=== PATIENT | female | born 1995 | race African-American/Black ===

== ENCOUNTER 2016-08-09 20:40 | Emergency (ER) | payer OTHER, SELFPAY ==
[2016-08-09] MEDS ORDERED: Dexamethasone 4 mg/ml Vial ONE (21:07)
== END 2016-08-09 21:32 | disposition home or self-care (01) ==
LOC: NAV ERS 20:40
DX: L23.9 Allergic contact dermatitis, unspecified cause (principal)
CPT/HCPCS: 96372; J1100

== ENCOUNTER 2016-08-25 21:26 | Emergency (ER) | payer SELFPAY ==
[2016-08-25] MEDS ORDERED: Meclizine HCl 25 MG TAB ONE (21:59)
== END 2016-08-25 22:05 | disposition home or self-care (01) ==
LOC: NAV ERS 21:26
DX: H81.13 Benign paroxysmal vertigo, bilateral (principal); Z87.442 Personal history of urinary calculi
CPT/HCPCS: 99283

== ENCOUNTER 2016-09-16 10:45 | Emergency (ER) | payer SELFPAY ==
[2016-09-16] MEDS ORDERED: Acetaminophen 500 MG TAB ONE (11:09)
[2016-09-16] MEDS ORDERED: Ondansetron ODT 4 MG TAB ONE (11:09)
[2016-09-16 11:35] LABS: #Basophils 0.1 thou/uL (0.0-0.2); #Eosinphils 0.1 thou/uL (0.0-0.7); #Lymphocytes 2.2 thou/uL (1.20-3.40); #Monocytes 0.5 thou/uL (0.11-0.59); #Neutrophils 3.3 thou/uL (1.40-6.50); %Basophils 1.5 % (0.0-1.0); %Eosinophils 1.7 % (0.0-10.0); %Lymphocytes 35.4 % (21.0-51.0); %Monocytes 8.1 % (0.0-10.0); %Neutrophils 53.3 % (42.0-75.0); Hemoglobin 11.1 g/dL (12.0-16.0); Mean Corpuscular HGB CONC 31.2 g/dL (32.0-36.0); Mean Corpuscular Volume 86.6 fl (81.0-99.0); Mean Platelet Volume 6.9 fL (7.4-10.4); Platelet Count 318 thou/uL (130-400); RBC Distribution Width 13.3 % (11.5-14.5); Red Blood Cell (RBC) Count 4.12 mill/uL (4.20-5.40); White Blood Cell (WBC) Count 6.1 thou/uL (4.8-10.8)
[2016-09-16 11:45] LABS: ALT (SGPT) 12 U/L (8-55); AST (SGOT) 11 U/L (5-34); Albumin 3.7 g/dL (3.5-5.0); Alkaline Phosphatase 44 U/L (40-150); Anion Gap 12 mmol/L (10-20); BUN (Urea Nitrogen) 11 mg/dL (7.0-18.7); Bilirubin, Total 0.3 mg/dL (0.2-1.2); Calc. Creatinine Clearance 0 mL/min (70-130); Calcium 8.9 mg/dL (7.8-10.44); Carbon Dioxide 21 mmol/L (22-29); Chloride 109 mmol/L (98-107); Estimated GFR-MDRD Greater than 90; Globulin 3.2 g/dL (2.4-3.5); Glucose 105 mg/dL (70-105); Potassium 3.9 mmol/L (3.5-5.1); Protein, Total 6.9 g/dL (6.0-8.3); Sodium 138 mmol/L (136-145)
[2016-09-16] MEDS ORDERED: Ibuprofen 200 MG TAB ONE (12:35)
== END 2016-09-16 12:39 | disposition home or self-care (01) ==
LOC: NAV ERS 10:45
DX: O03.9 Complete or unspecified spontaneous abortion without complication (principal); O23.41 Unspecified infection of urinary tract in pregnancy, first trimester; Z3A.01 Less than 8 weeks gestation of pregnancy
CPT/HCPCS: 80053; 84702; 85025; 99284; Q0162

== ENCOUNTER 2017-02-20 11:38 | Emergency (ER) | payer SELFPAY | END 2017-02-20 12:19 | disposition home or self-care (01) | LOC: NAV ERS 11:38 | DX: R21 Rash and other nonspecific skin eruption (principal) | CPT/HCPCS: 99282 ==

== ENCOUNTER 2017-04-26 08:56 | Emergency (ER) | payer BC, SELFPAY | END 2017-04-26 09:25 | disposition home or self-care (01) | LOC: NAV ERS 08:56 | DX: J11.1 Influenza due to unidentified influenza virus with other respiratory manifestations (principal); E66.9 Obesity, unspecified; Z87.442 Personal history of urinary calculi; R53.83 Other fatigue; R50.9 Fever, unspecified | CPT/HCPCS: 99283 ==

== ENCOUNTER 2017-05-08 20:48 | Emergency (ER) | payer BC, SELFPAY ==
[2017-05-08 21:16] LABS: Bilirubin Negative (Negative); Blood, Urine Negative (Negative); Glucose, Urine (Dipstick) Negative (Negative); Leukocyte Negative (Negative); Nitrite Negative (Negative); Protein, Urine (Dipstick) Negative (Neg-Trace); Urobilinogen 0.2 mg/dL (0.2-1.0)
[2017-05-08 21:17] LABS: Clarity SL HAZY (Clear); Specific Gravity, Urine 1.024 (1.002-1.036)
[2017-05-08 21:18] LABS: Pregnancy Test - Urine (BHCG) Negative (Negative); Pregu Control Background? CLEAR/WHITE (CLR/WHITE); Pregu Control Bar Appear? YES (CONTROL BAR); Specific Gravity 1.024 (1.002-1.036)
[2017-05-08] MEDS ORDERED: Ondansetron ODT 4 MG TAB ONE (21:18)
[2017-05-08] MEDS ORDERED: Ketorolac Tromethamine 30 MG/ML VIAL ONE (21:35)
== END 2017-05-08 21:58 | disposition home or self-care (01) ==
LOC: NAV ERS 20:48
DX: G43.909 Migraine, unspecified, not intractable, without status migrainosus (principal); E66.9 Obesity, unspecified
CPT/HCPCS: 81003; 81025; 96372; J1885; Q0162

== ENCOUNTER 2017-06-02 11:45 | Emergency (ER) | payer BC, SELFPAY ==
[2017-06-02 12:20] LABS: Bilirubin Negative (Negative); Blood, Urine Negative (Negative); Clarity Clear (Clear); Glucose, Urine (Dipstick) Negative (Negative); Leukocyte Negative (Negative); Nitrite Negative (Negative); Protein, Urine (Dipstick) Negative (Neg-Trace); Urobilinogen 0.2 mg/dL (0.2-1.0); pH, Urine 5.5 (5.0-9.0)
[2017-06-02 12:41] LABS: Pregnancy Test - Urine (BHCG) Negative (Negative); Pregu Control Background? CLEAR/WHITE (CLR/WHITE); Pregu Control Bar Appear? YES (CONTROL BAR)
[2017-06-02 22:46] LABS: Chlamydia by PCR Not Detected (NotDetected); GC by PCR Not Detected (NotDetected)
== END 2017-06-02 13:17 | disposition home or self-care (01) ==
LOC: NAV ERS 11:45
DX: N76.0 Acute vaginitis (principal); E66.9 Obesity, unspecified; Z87.442 Personal history of urinary calculi; N89.8 Other specified noninflammatory disorders of vagina
CPT/HCPCS: 81003; 81025; 87491; 87591; 99284

== ENCOUNTER 2017-06-04 21:53 | Emergency (ER) | payer SELFPAY, OTHER ==
[2017-06-04] MEDS ORDERED: Ibuprofen 800 MG TAB ONE (22:17)
== END 2017-06-04 22:30 | disposition home or self-care (01) ==
LOC: NAV ERS 21:53
DX: S29.012A Strain of muscle and tendon of back wall of thorax, initial encounter (principal); E66.9 Obesity, unspecified; X58.XXXA Exposure to other specified factors, initial encounter; Y92.129 Unspecified place in nursing home as the place of occurrence of the external cause; Y99.0 Civilian activity done for income or pay
CPT/HCPCS: 99283

== ENCOUNTER 2017-06-09 10:04 | Emergency (ER) | payer BC, SELFPAY ==
[2017-06-09 11:38] LABS: Bilirubin Negative (Negative); Blood, Urine Negative (Negative); Clarity Clear (Clear); Glucose, Urine (Dipstick) Negative (Negative); Leukocyte Negative (Negative); Nitrite Negative (Negative); Protein, Urine (Dipstick) Negative (Neg-Trace); Specific Gravity, Urine 1.025 (1.005-1.030)
[2017-06-09 11:51] LABS: Wet Prep Clue Cells Clue Cells PRESENT (None Seen); Wet Prep Trichomonas Trichomonas Absent (None Seen)
== END 2017-06-09 12:03 | disposition home or self-care (01) ==
LOC: NAV ERS 10:04
DX: N76.0 Acute vaginitis (principal); Z87.442 Personal history of urinary calculi
CPT/HCPCS: 81003; 87086; 87210; 99283

== ENCOUNTER 2017-08-01 16:58 | Emergency (ER) | payer BC, SELFPAY ==
[2017-08-02 15:47] LABS: HIV (1/2) Antibody/Antigen Non-Reactive (NonReactive); HIV 1/2 INDEX 0.12 S/CO (<1.00); Hep C IgG Ab Non-Reactive (NonReactive)
[2017-08-02 16:29] LABS: Hep B Surf AB Reactive (NonReactive)
[2017-08-02 16:30] LABS: HBSAB Concentration 2813.44 mIU/mL
== END 2017-08-01 17:59 | disposition home or self-care (01) ==
LOC: NAV ERS 16:58
DX: Z77.21 Contact with and (suspected) exposure to potentially hazardous body fluids (principal)
CPT/HCPCS: 86706; 86803; 87389; 99283

== ENCOUNTER 2017-08-25 09:43 | Emergency (ER) | payer SELFPAY ==
[2017-08-25] MEDS ORDERED: Aspirin 325 MG TAB ONE (10:01)
--- NOTE | 2017-08-25 10:52 | RAD ---
CHEST TWO VIEWS: HISTORY: Chest pain. COMPARISON: 09/20/2015 FINDINGS: The cardiac silhouette and pulmonary vasculature are unremarkable. The mediastinum is midline. Ther e is no confluent air space consolidation, pneumothorax, or pleural fluid evident. IMPRESSION: No active cardiopulmonary abnormalities are demonstrated. POS: [facility]
== END 2017-08-25 10:29 | disposition home or self-care (01) ==
LOC: NAV ERS 09:43
DX: S29.011A Strain of muscle and tendon of front wall of thorax, initial encounter (principal); X50.9XXA Other and unspecified overexertion or strenuous movements or postures, initial encounter
CPT/HCPCS: 71046; 93005

== ENCOUNTER 2017-09-14 18:10 | Emergency (ER) | payer SELFPAY ==
[2017-09-14 18:52] LABS: Bilirubin Negative (Negative); Blood, Urine Negative (Negative); Clarity Clear (Clear); Glucose, Urine (Dipstick) Negative (Negative); Leukocyte Negative (Negative); Nitrite Negative (Negative); Protein, Urine (Dipstick) Negative (Neg-Trace); Specific Gravity, Urine 1.025 (1.005-1.030)
[2017-09-14 18:53] LABS: Pregnancy Test - Urine (BHCG) Negative (Negative); Pregu Control Background? CLEAR/WHITE (CLR/WHITE); Pregu Control Bar Appear? YES (CONTROL BAR); Specific Gravity 1.025 (1.002-1.036)
[2017-09-15 20:17] LABS: Chlamydia by PCR Not Detected (NotDetected); GC by PCR Not Detected (NotDetected)
== END 2017-09-14 19:23 | disposition home or self-care (01) ==
LOC: NAV ERS 18:10
DX: N76.0 Acute vaginitis (principal); Z87.442 Personal history of urinary calculi
CPT/HCPCS: 81003; 81025; 87491; 87591; 99283

== ENCOUNTER 2017-11-30 15:28 | Emergency (ER) | payer BC, OTHER, SELFPAY ==
[2017-11-30] MEDS ORDERED: Dexamethasone 20 MG/5 ML VIAL ONE (15:54)
== END 2017-11-30 16:02 | disposition home or self-care (01) ==
LOC: NAV ERS 15:28
DX: J30.9 Allergic rhinitis, unspecified (principal)
CPT/HCPCS: 96372; J1100

== ENCOUNTER 2018-07-12 10:23 | Emergency (ER) | payer BC | END 2018-07-12 11:08 | disposition home or self-care (01) | LOC: NAV ERS 10:23 | DX: N76.0 Acute vaginitis (principal) | CPT/HCPCS: 99281 ==

== ENCOUNTER 2020-04-09 21:01 | Emergency (ER) | payer MEDICAID, SELFPAY ==
[2020-04-09] MEDS ORDERED: Acetaminophen 500 MG TAB ONE (21:19)
[2020-04-09 21:58] LABS: #Basophils 0.1 thou/uL (0.0-0.2); #Lymphocytes 1.3 thou/uL (1.20-3.40); #Monocytes 0.6 thou/uL (0.11-0.59); #Neutrophils 6.5 thou/uL (1.40-6.50); %Basophils 0.7 % (0.0-1.0); %Eosinophils 0.2 % (0.0-10.0); %Monocytes 7.5 % (0.0-10.0); %Neutrophils 76.6 % (42.0-75.0); Hemoglobin 10.6 g/dL (12.0-16.0); Mean Corpuscular HGB CONC 33.3 g/dL (32.0-36.0); Mean Corpuscular Hemoglobin 29.8 pg (27.0-31.0); Mean Corpuscular Volume 89.3 fL (78.0-98.0); Mean Platelet Volume 6.9 fL (7.4-10.4); Platelet Count 244 thou/uL (130-400); RBC Distribution Width 12.4 % (11.5-14.5); Red Blood Cell (RBC) Count 3.56 mill/uL (4.20-5.40); White Blood Cell (WBC) Count 8.4 thou/uL (4.8-10.8)
[2020-04-09 22:00] LABS: Bilirubin Small (Negative); Blood, Urine Negative (Negative); Clarity Clear (Clear); Glucose, Urine (Dipstick) Negative (Negative); Ketone, Urine > or equal to 80 mg/dL (Negative); Leukocyte Negative (Negative); Nitrite Negative (Negative); Protein, Urine (Dipstick) Trace mg/dL (Neg-Trace); Specific Gravity, Urine 1.015 (1.005-1.030)
[2020-04-09 22:20] LABS: ALT (SGPT) 10 U/L (8-55); AST (SGOT) 12 U/L (5-34); Albumin 3.5 g/dL (3.5-5.0); Alkaline Phosphatase 79 U/L (40-110); Anion Gap 16 mmol/L (10-20); BUN (Urea Nitrogen) 4 mg/dL (7.0-18.7); Bilirubin, Total 0.6 mg/dL (0.2-1.2); Calc. Creatinine Clearance 0 mL/min (70-130); Calcium 8.6 mg/dL (7.8-10.44); Carbon Dioxide 15 mmol/L (22-29); Chloride 103 mmol/L (98-107); Globulin 3.7 g/dL (2.4-3.5); Glucose 96 mg/dL (70-105); Potassium 3.3 mmol/L (3.5-5.1); Protein, Total 7.2 g/dL (6.0-8.3); Sodium 131 mmol/L (136-145)
[2020-04-11 11:41] LABS: SARS-CoV-2 PCR by NAA Not Detected (NotDetected)
== END 2020-04-10 00:25 | disposition home or self-care (01) ==
LOC: NAV ERS 21:01
DX: O99.891 Other specified diseases and conditions complicating pregnancy (principal); R50.9 Fever, unspecified; R51.9 Headache, unspecified; R06.02 Shortness of breath; R53.83 Other fatigue; R42 Dizziness and giddiness; Z20.822 Contact with and (suspected) exposure to COVID-19; R07.9 Chest pain, unspecified; Z87.442 Personal history of urinary calculi; Z79.899 Other long term (current) drug therapy; Z3A.32 32 weeks gestation of pregnancy
CPT/HCPCS: 36415; 80053; 81003; 83605; 85025; 87040; 87086; 87635; 87804; 99283; U0003; U0005

== ENCOUNTER 2021-03-13 16:36 | Emergency (ER) | payer MEDICAID ==
[2021-03-13] MEDS ORDERED: Ondansetron PF 4 MG/2 ML Vial ONE (17:08)
[2021-03-13] MEDS ORDERED: Sodium Chloride 0.9% 1,000 ML ONE (17:31)
[2021-03-13 17:33] LABS: #Basophils 0.1 thou/uL (0.0-0.2); #Eosinphils 0.1 thou/uL (0.0-0.7); #Lymphocytes 0.5 thou/uL (1.20-3.40); #Monocytes 0.6 thou/uL (0.11-0.59); #Neutrophils 6.2 thou/uL (1.40-6.50); %Basophils 1.2 % (0.0-1.0); %Eosinophils 0.8 % (0.0-10.0); %Lymphocytes 6.3 % (21.0-51.0); %Monocytes 8.3 % (0.0-10.0); %Neutrophils 83.5 % (42.0-75.0); Hemoglobin 9.4 g/dL (12.0-16.0); Mean Corpuscular HGB CONC 31.2 g/dL (32.0-36.0); Mean Corpuscular Hemoglobin 27.9 pg (27.0-31.0); Mean Corpuscular Volume 89.4 fL (78.0-98.0); Mean Platelet Volume 7.5 fL (7.4-10.4); Platelet Count 221 thou/uL (130-400); Red Blood Cell (RBC) Count 3.38 mill/uL (4.20-5.40); White Blood Cell (WBC) Count 7.4 thou/uL (4.8-10.8)
[2021-03-13 17:52] LABS: ALT (SGPT) 13 U/L (8-55); AST (SGOT) 13 U/L (5-34); Albumin 3.2 g/dL (3.5-5.0); Alkaline Phosphatase 76 U/L (40-110); Anion Gap 11 mmol/L (10-20); BUN (Urea Nitrogen) 5 mg/dL (7.0-18.7); Bilirubin, Total 0.4 mg/dL (0.2-1.2); Calc. Creatinine Clearance 0 mL/min (70-130); Calcium 8.6 mg/dL (7.8-10.44); Carbon Dioxide 18 mmol/L (22-29); Chloride 109 mmol/L (98-107); Globulin 3.7 g/dL (2.4-3.5); Glucose 85 mg/dL (70-105); Lipase 12 U/L (8-78); Potassium 3.3 mmol/L (3.5-5.1); Protein, Total 6.9 g/dL (6.0-8.3); Sodium 135 mmol/L (136-145)
[2021-03-13 18:05] LABS: Bilirubin Negative (Negative); Blood, Urine Negative (Negative); Clarity Clear (Clear); Glucose, Urine (Dipstick) Negative (Negative); Ketone, Urine Negative (Negative); Leukocyte Negative (Negative); Nitrite Negative (Negative); Protein, Urine (Dipstick) Negative (Neg-Trace); pH, Urine 7.5 (5.0-9.0)
[2021-03-13] MEDS ORDERED: Acetaminophen 500 MG TAB ONE (18:34)
== END 2021-03-13 18:45 | disposition home or self-care (01) ==
LOC: NAV ERS 16:36
DX: O99.283 Endocrine, nutritional and metabolic diseases complicating pregnancy, third trimester (principal); E87.6 Hypokalemia; E86.9 Volume depletion, unspecified; O21.9 Vomiting of pregnancy, unspecified; O99.891 Other specified diseases and conditions complicating pregnancy; M79.604 Pain in right leg; M79.605 Pain in left leg; Z3A.33 33 weeks gestation of pregnancy; Z79.899 Other long term (current) drug therapy
CPT/HCPCS: 80053; 81003; 82550; 83690; 85025; 96374; J2405; J7050

== ENCOUNTER 2025-03-14 17:24 | Emergency (ER) | payer OTHER, SELFPAY ==
[2025-03-14] MEDS ORDERED: Acetaminophen 325 MG TAB ONE (18:18)
== END 2025-03-14 18:25 | disposition home or self-care (01) ==
LOC: NAV ERS 17:24
DX: J06.9 Acute upper respiratory infection, unspecified (principal); R51.9 Headache, unspecified
CPT/HCPCS: 99283